=== PATIENT | male | born 1955 | race Caucasian/White ===

== ENCOUNTER → 2016-10-06 | Outpatient (CLI) | payer OTHER ==
--- NOTE | 2016-10-06 10:55 | RAD ---
APPROVED REPORT Patient Location: OUT-PATIENT Indications ckd stage 1, htn Risk Factors Hypertension Renal Artery Doppler Right Renal Artery Left Renal Arter y Mid 52.3/14.4 cm/secMid 36.5/13.4 cm/sec Distal 36.8/11.7 cm/secDistal 34.6/11.6 cm/sec Renal/Aorta Ratio 0.58Renal/Aorta Ratio 0.40 Mid Resistive Index 0.72Mid Resistive Index 0.63 Distal Resistive Index 0.68Distal Resistive Index 0.66 Renal Measurements RightLeft Kidney Otemio67.7 cm cmKidney Umthlg83.4 cm cm Right Additional FindingsLeft Additional Findings Aortic Doppler VelocityWaveform Mid. Aorta 90.7 cm/sec Findings Bilateral carpio scale images of the kidneys, renal veins and arteries were obtained along with carpio sc dejon images of the prostate and bladder. The right and left kidneys appear within average limits with respect to size. No obvious cysts are noted. Renal artery velocities and ratios are WNL bilaterally. No obvious renal artery stenosis is identified. The bladder appears to be within normal limits and bilateral bladder jets are seen. The prostate measures 2.8 x 2.9 x 4.6 cm with a volume of approximately 19.4 mL. Critical Notification Critical Value: No <Conclusion> No evidence of renal artery stenosis bilaterally. Limited diagnostic evaluation due to bowel gas and body habitus. Kidney and prostate measurements as noted above. Correlate clinically as necessary.
== END | disposition home or self-care (01) ==
LOC: US 08:29
PROVIDERS: ATTEND Internal Medicine Cardiovascular Disease
DX: I12.9 Hypertensive chronic kidney disease with stage 1 through stage 4 chronic kidney disease, or unspecified chronic kidney disease (principal); N18.1 Chronic kidney disease, stage 1
CPT/HCPCS: 76770

== ENCOUNTER → 2019-09-21 | Outpatient (CLI) | payer MEDICARE, OTHER ==
[~2019-09-21] MED LIST: ALBUTEROL SULFATE 2.5 MG/3 ML NEBU. NEB ONE
--- NOTE | 2019-09-27 17:27 | RESP ---
DATE OF SERVICE: 09/21/2019 The patient underwent full pulmonary function testing pre and post-bronchodilator. The FEV1 to FVC ratio was 99%, FEV1 was 62% of predicted at 1.90 liters, FVC was 46% of predicted at 2.28 liters. The patient was given bronchodilators. His FEV1 did not improve. His total lung capacity was preserved. Residual volume was preserved. IMPRESSION: 1. Evidence of airflow limitation. 2. Marked elevation in total lung capacity. 3. Marked elevation in residual volume compatible with air trapping. MANJEET COATS MD DR: CECILIA/justin JOB#: [id number] / [id number] CALVIN Gilbert MD
== END | disposition home or self-care (01) ==
LOC: PF 09:21
PROVIDERS: ATTEND Internal Medicine
DX: R06.02 Shortness of breath (principal)
CPT/HCPCS: 94060; 94640; 94726; 94729; J7613